=== PATIENT | male | born 1995 | race Caucasian/White ===

== ENCOUNTER 2019-08-23 22:30 | Emergency (ER) | payer OTHER, SELFPAY ==
[~2019-08-23] VITALS: Ht 182.9 cm; Wt 86.2 kg
[2019-08-23 22:38] VITALS: BP 168/115
--- NOTE | 2019-08-23 22:40 | NUR ---
PT TAKEN TO TENT
--- NOTE | 2019-08-23 22:45 | NUR ---
PT MOVED TO BED 1
--- NOTE | 2019-08-23 22:50 | NUR ---
24 Y/O MALE PRESENTS WITH MIGRAINE X TODAY. PT STATES PAIN IS IN TEMPORAL AND ORBITAL AREA, 10/10 PAIN. DENIES ANY RECENT CONTACT WITH COVID POSITIVE PTS. DENIES COUGH/SOB/CHEST PAIN. RESP EVEN AND UNLABORED. LUNG SOUNDS CLEAR IN BILAT LOBES. PT STATES HE SELF MEDICATED WITH TYLENOL AT 1700. GCS 15. NO PMH NKA
[2019-08-23] MEDS ORDERED: ONDANSETRON 4 MG/2 ML VIAL IVP ONE (23:00)
[2019-08-23] MEDS ORDERED: KETOROLAC 30 MG/ML VIAL IVP ONE (23:00)
[2019-08-23] MEDS ORDERED: NACL 0.9% 1,000 ML IV ONE (23:00)
--- NOTE | 2019-08-23 23:47 | NUR ---
Dr. Rebolledo examining patient.
--- NOTE | 2019-08-24 00:22 | NUR ---
Patient discharged with v/s stable. Written and verbal after care instructions given and explained. Patient alert, oriented and verbalized understanding of instructions. Ambulatory with steady gait. All questions addressed prior to discharge. ID band removed. Patient advised to follow up with PMD. Rx of MOTRIN, ZOFRAN, NORCO given. Patient educated on indication of medication including possible reaction and side effects. Opportunity to ask questions provided and answered.
[2019-08-24 00:23] VITALS: BP 110/78
== END 2019-08-24 00:22 | disposition home or self-care (01) ==
LOC: MED 22:30 → EEVIPCON 22:30 → MED 08-24 00:22
DX: R50.9 Fever, unspecified (principal); R51 Headache; R11.0 Nausea
CPT/HCPCS: 96361; 96374; 96375; 99284; J1885; J2405; J7030

== ENCOUNTER 2020-03-17 18:07 | Emergency (ER) | payer OTHER ==
[~2020-03-17] VITALS: Ht 177.8 cm; Wt 86.2 kg
[2020-03-17 18:14] VITALS: BP 146/105
[2020-03-17] MEDS ORDERED: KETOROLAC 60 MG/2 ML VIAL IM ONE (18:20)
--- NOTE | 2020-03-17 18:51 | NUR ---
Patient taken to xray
--- NOTE | 2020-03-17 18:52 | NUR ---
VINCENT Reddy with pt for MSE.
[2020-03-17 19:04] VITALS: BP 146/105
--- NOTE | 2020-03-17 19:08 | NUR ---
pt medicated per orders.
--- NOTE | 2020-03-17 19:45 | NUR ---
DISCHARGE INSTRUCTIONS PROVIDED BY SHAMAR KAUR.
== END 2020-03-17 19:45 | disposition home or self-care (01) ==
LOC: MED 18:07
DX: S16.1XXA Strain of muscle, fascia and tendon at neck level, initial encounter (principal); V89.2XXA Person injured in unspecified motor-vehicle accident, traffic, initial encounter; Y93.89 Activity, other specified; Y92.410 Unspecified street and highway as the place of occurrence of the external cause; Y99.8 Other external cause status
CPT/HCPCS: 72050; 96372; 99283; J1885

== ENCOUNTER 2021-01-01 11:52 | Emergency (ER) | payer OTHER ==
[~2021-01-01] VITALS: Ht 175.3 cm; Wt 72.6 kg
[2021-01-01 12:03] VITALS: BP 155/98
[2021-01-01] MEDS ORDERED: ACET-10509 PO (13:05)
[2021-01-01 13:24] VITALS: BP 155/98
--- NOTE | 2021-01-01 13:24 | NUR ---
Patient discharged with v/s stable. Written and verbal after care instructions given and explained. Patient alert, oriented and verbalized understanding of instructions. Ambulatory with steady gait. All questions addressed prior to discharge. ID band removed. Patient advised to follow up with PMD. Rx of TYLENOL EXTRA STRENGTH given. Patient educated on indication of medication including possible reaction and side effects. Opportunity to ask questions provided and answered.
== END 2021-01-01 13:24 | disposition home or self-care (01) ==
LOC: MED 11:52
DX: S00.83XA Contusion of other part of head, initial encounter (principal); Z79.899 Other long term (current) drug therapy; Z90.49 Acquired absence of other specified parts of digestive tract; V80.010A Animal-rider injured by fall from or being thrown from horse in noncollision accident, initial encounter; Y93.89 Activity, other specified; Y92.89 Other specified places as the place of occurrence of the external cause; Y99.8 Other external cause status
CPT/HCPCS: 70450; 70486; 73130; 99285